=== PATIENT | male | born 1985 | race African-American/Black ===

== ENCOUNTER 2018-06-22 04:13 | Emergency (ER) | payer SELFPAY ==
[2018-06-22] MEDS ORDERED: Sodium Chloride 0.9% 10 ML Syringe FLUSH PRN (04:30)
[2018-06-22] MEDS ORDERED: Ondansetron 4 MG/2 ML SDV IVPUSH ONE (04:31)
[2018-06-22] MEDS ORDERED: HYDROmorphone 1 MG/ML Syringe IVPUSH ONE (04:32)
[2018-06-22] MEDS ORDERED: Lactated Ringers 1,000 ML IV SCH (04:45)
[2018-06-22 05:38] LABS: ANION GAP 12.5 mmol/L (10-20); CHLORIDE,CL 105 mmol/L (98-107); SODIUM,NA 139 mmol/L (136-145)
[2018-06-22] MEDS ORDERED: Iopamidol 612 MG/ML 100 ML Bottle IVPUSH ONE (06:16)
[2018-06-22] MEDS ORDERED: Take Home: Acetaminophen/HYDROcodone 325-5 MG, 5 Tab Pack PO ONE (07:15)
--- NOTE | 2018-06-23 17:59 | EDM.PDOC ---
ED HPI GENERAL MEDICAL PROBLEM - General Chief Complaint: Abdominal Pain Stated Complaint: ABDOMINAL PAIN Time Seen by Provider: 06/22/18 04:28 Source of Information: Reports: Patient History Limitations: Reports: No Limitations - History of Present Illness INITIAL COMMENTS - FREE TEXT/NARRATIVE: PtYumiko presents to ER with complaints of upper abdominal pain that appears to have a postprandial component. He states that he has never had pain like this in the past. No fever or chills. No nausea/vomiting or diarrhea. States that he ate approx. 1 hour before the onset of symptoms. He states it is primarily epigastric, but does localize to the RUQ. Denies any lisa colored stools or dark urine. Denies any chest pain or shortness of breath. No melena, hemetemesis, or hematochezia. Onset: Today Location: Reports: Abdomen Quality: Reports: Ache Bilateral Upper Abdomen Pain Score (Numeric/FACES): 5 - Related Data Allergies Allergy/AdvReac Type Severity Reaction Status Date / Time No Known Allergies Allergy Verified 06/22/18 04:14 Home Meds: Home Meds . [No Known Home Meds] 06/22/18 [History] Past Medical History Cardiovascular History: Reports: Hypertension Social & Family History - Tobacco Use Smoking Status *Q: Never Smoker ED ROS GENERAL - Review of Systems Review Of Systems: See Below Constitutional: Reports: No Symptoms HEENT: Reports: No Symptoms Respiratory: Reports: No Symptoms Cardiovascular: Reports: No Symptoms Endocrine: Reports: No Symptoms GI/Abdominal: Reports: Abdominal Pain (see hpi) : Reports: No Symptoms Musculoskeletal: Reports: No Symptoms Skin: Reports: No Symptoms Neurological: Reports: No Symptoms Psychiatric: Reports: No Symptoms Hematologic/Lymphatic: Reports: No Symptoms Immunologic: Reports: No Symptoms ED EXAM, GENERAL - Physical Exam Exam: See Below Exam Limited By: No Limitations General Appearance: Alert, WD/WN Eye Exam: Bilateral Eye: EOMI, Normal Fundi, Normal Inspection, PERRL Throat/Mouth: Normal Inspection, Normal Lips, Normal Teeth, Normal Gums, Normal Oropharynx, Normal Voice, No Airway Compromise Head: Atraumatic, Normocephalic Neck: Normal Inspection, Supple, Non-Tender, Full Range of Motion Respiratory/Chest: No Respiratory Distress, Lungs Clear, Normal Breath Sounds, No Accessory Muscle Use, Chest Non-Tender Cardiovascular: Normal Peripheral Pulses, Regular Rate, Rhythm, No Edema, No Gallop, No JVD, No Murmur, No Rub Peripheral Pulses: 4+: Radial (L), Radial (R) GI/Abdominal: Normal Bowel Sounds, Soft, No Distention, Tender. No: No Organomegaly, No Mass, Guarding, Rigid, Rebound (Male) Exam: Deferred Rectal (Males) Exam: Deferred Back Exam: Normal Inspection, Full Range of Motion, NT Extremities: Normal Inspection, Normal Range of Motion, Non-Tender, Normal Capillary Refill, No Pedal Edema Neurological: Alert, Oriented, CN II-XII Intact, Normal Cognition, Normal Gait, Normal Reflexes, No Motor/Sensory Deficits Psychiatric: Normal Affect, Normal Mood Skin Exam: Warm, Dry, Intact, Normal Color, No Rash EKG INTERPRETATION Rhythm: NSR [place]: Normal P-Wave: Present QRS: Normal ST-T: Normal QT: Normal Course - Vital Signs Last Recorded V/S: Last Vital Signs Temp 36.6 C 06/22/18 04:15 Pulse 76 06/22/18 06:57 Resp 16 06/22/18 06:57 BP 153/97 H 06/22/18 06:57 Pulse Ox 97 06/22/18 06:57 - Orders/Labs/Meds Labs: Laboratory Tests 06/22/18 06/22/18 06/22/18 Range/Units 05:08 05:08 05:08 WBC 7.5 (4.0-10.0) x10^3/uL RBC 5.26 (4.5-6.0) x10^6/uL Hgb 15.0 (14.0-18.0) g/dL Hct 41.8 (40.0-52.0) % MCV 79.5 (78.0-93.0) fL MCH 28.5 (26.0-32.0) pg MCHC 35.9 (32.0-36.0) g/dL RDW Coeff of Jack 13.7 (10.0-15.0) % Plt Count 223 (130-400) x10^3/uL Neut % (Auto) 55.3 (50.0-80.0) % Lymph % (Auto) 35.3 (25.0-50.0) % [place] % (Auto) 8.5 (2.0-11.0) % Eos % (Auto) 0.5 (0.0-4.0) % Baso % (Auto) 0.4 (0.2-1.2) % PT 11.1 (9.6-11.4) SEC INR 1.1 L (2.0-3.5) Sodium 139 (136-145) mmol/L Potassium 3.5 (3.5-5.1) mmol/L Chloride 105 (98-107) mmol/L Carbon Dioxide 25 (21-32) mmol/L Anion Gap 12.5 (10-20) mmol/L BUN 11 (7-18) mg/dL Creatinine 1.1 (0.70-1.30) mg/dL Est Cr Clr Drug Dosing TNP Estimated GFR (MDRD) > 60 Glucose 116 H (74-106) mg/dL Lactic Acid (0.4-2.0) mmol/L Calcium 9.2 (8.5-10.1) mg/dL Corrected Calcium 9.20 (8.5-10.1) mg/dL Total Bilirubin 0.9 (0.2-1.0) mg/dL AST 119 H (15-37) U/L ALT 99 H (16-63) U/L Alkaline Phosphatase 95 (46-116) U/L Troponin I < 0.017 (<=0.056) ng/mL C-Reactive Protein 0.2 (<=0.9) mg/dL Total Protein 7.6 (6.4-8.2) g/dL Albumin 4.0 (3.4-5.0) g/dL Globulin 3.6 Albumin/Globulin Ratio 1.11 06/22/18 Range/Units 05:08 WBC (4.0-10.0) x10^3/uL RBC (4.5-6.0) x10^6/uL Hgb (14.0-18.0) g/dL Hct (40.0-52.0) % MCV (78.0-93.0) fL MCH (26.0-32.0) pg MCHC (32.0-36.0) g/dL RDW Coeff of Jack (10.0-15.0) % Plt Count (130-400) x10^3/uL Neut % (Auto) (50.0-80.0) % Lymph % (Auto) (25.0-50.0) % [place] % (Auto) (2.0-11.0) % Eos % (Auto) (0.0-4.0) % Baso % (Auto) (0.2-1.2) % PT (9.6-11.4) SEC INR (2.0-3.5) Sodium (136-145) mmol/L Potassium (3.5-5.1) mmol/L Chloride (98-107) mmol/L Carbon Dioxide (21-32) mmol/L Anion Gap (10-20) mmol/L BUN (7-18) mg/dL Creatinine (0.70-1.30) mg/dL Est Cr Clr Drug Dosing Estimated GFR (MDRD) Glucose (74-106) mg/dL Lactic Acid 1.5 (0.4-2.0) mmol/L Calcium (8.5-10.1) mg/dL Corrected Calcium (8.5-10.1) mg/dL Total Bilirubin (0.2-1.0) mg/dL AST (15-37) U/L ALT (16-63) U/L Alkaline Phosphatase (46-116) U/L Troponin I (<=0.056) ng/mL C-Reactive Protein (<=0.9) mg/dL Total Protein (6.4-8.2) g/dL Albumin (3.4-5.0) g/dL Globulin Albumin/Globulin Ratio Meds: Medications Discontinued Medications Generic Name Dose Route Start Last Admin Trade Name Freq PRN Reason Stop Dose Admin Hydrocodone Bitart/Acetaminophen 1 packet 06/22/18 07:15 06/22/18 07:21 Take Home: Acetam/Hydrocodon 325-5 Mg, 5 Pack PO 06/22/18 07:16 1 packet ONETIME ONE Administration Hydromorphone HCl 1 mg 06/22/18 04:32 06/22/18 04:53 Dilaudid IVPUSH 06/22/18 04:33 1 mg ONETIME ONE Administration Lactated Ringer's 1,000 mls @ 500 mls/hr 06/22/18 04:45 06/22/18 04:55 Ringers, Lactated IV 500 mls/hr ASDIRECTED [place] Administration Iopamidol 100 ml 06/22/18 06:16 06/22/18 06:24 Isovue-300 (61%) IVPUSH 06/22/18 06:17 100 ml ONETIME ONE Administration Ondansetron HCl 4 mg 06/22/18 04:31 06/22/18 04:54 Zofran IVPUSH 06/22/18 04:32 4 mg ONETIME ONE Administration Sodium Chloride 10 ml 06/22/18 04:30 Saline Flush FLUSH ASDIRECTED PRN Keep Vein Open - Radiology Interpretation Free Text/Narrative:: CT abdomen and pelvis were obtained. No obvious cholecyctitis or cholangitis noted. Departure - Departure Time of Disposition: 07:00 Disposition: Home, Self-Care 01 Clinical Impression: Epigastric abdominal pain - Discharge Information Instructions: Cholelithiasis Referrals: PCP,Not In Area [Primary Care Provider] - Forms: ED Department Discharge Additional Instructions: I'm concerned that the cause of the pain could be caused by your gallbladder. There is not evidence of gallbladder inflammation at this time, but if you are having continued discomfort, you should follow-up for an ultrasound of your gallbladder. [place] 5/325mg every 6 hours as needed for pain. Minimize consumption of fatty foods, dairy foods, greasy/oily meat, etc. - Assessment/Plan Plan: I'm concerned that the cause of the pain could be caused by your gallbladder. There is not evidence of gallbladder inflammation at this time, but if you are having continued discomfort, you should follow-up for an ultrasound of your gallbladder. [place] 5/325mg every 6 hours as needed for pain. Minimize consumption of fatty foods, dairy foods, greasy/oily meat, etc.
== END 2018-06-22 07:50 | disposition home or self-care (01) ==
LOC: VM.ED 04:13
DX: R10.13 Epigastric pain (principal); I10 Essential (primary) hypertension
CPT/HCPCS: 36415; 74177; 80053; 83605; 84484; 85025; 85610; 86140; 93005; 96361; 96374; 96375; 99285; A9270; J1170; J2405; J7120; Q9967